=== PATIENT | female | born 1990 | race Two or more races ===

== ENCOUNTER 2023-03-06 15:39 | Outpatient (AMB) | payer OTHER, SELFPAY ==
--- NOTE | 2023-03-06 15:41 | MHC.OFFWIV ---
Intake Vital Signs 03/06/23 15:42 Height 4 ft 9 in Weight 174 lb BMI 37.6 BP 112/78 Blood Pressure Location Lt brachial Position Sitting Pulse 78 Pulse Source Pulse Oximeter Temp 98.0 F Temp Source Temporal Artery Scan Pulse Oximetry (%) 98 Intake Visit Reasons: EP, sore throat, congestion (masked) Intake Note: pt is here for c/o sore throat with congestion Patient Tobacco Use Status: Never used Tobacco Allergies No Known Allergies Allergy (Verified 03/06/23 16:00) Medication List - Last Reconciled 03/06/23 by Mu Poe MD albuterol sulfate 90 mcg/actuation inhalation epinephrine IM fluticasone propionate 110 mcg/actuation inhalation Do you need a note to return to daycare/school/sports/work: Yes HPI EP, sore throat, congestion (masked) HPI Details Patient presents for a sick visit. Reporting symptoms of sinus congestion, sore throat and difficulty swallowing. Low-grade fever. No family member is sick. No recent travel. Patient reports symptoms of malaise and fatigue. PFSH Social History Patient Tobacco Use Status: Never used Tobacco Physical Exam Vital Signs: Last Vital Signs Temp 98.0 F 03/06/23 15:42 Pulse 78 03/06/23 15:42 BP 112/78 03/06/23 15:42 Pulse Ox 98 03/06/23 15:42 BMI result Body Mass Index 37.6 Const General: cooperative and healthy appearing Nutritional Appearance: well nourished Orientation/consciousness: patient oriented x3 Limitations: no limitations HEENT Head: Yes normal to inspection Eyes General: appearance normal, both eyes and all related structures Neck Neck: Yes normal visual inspection Chest Chest palpation & inspection: normal palpation of entire chest wall Resp Effort & Inspection: normal respiratory effort Neuro General: patient oriented x3 Assessment & Plan Assessment & Plan (1) Upper respiratory tract infection: Code(s): J06.9 - Acute upper respiratory infection, unspecified Qualifiers: URI type: unspecified viral URI Qualified Code(s): J06.9 - Acute upper respiratory infection, unspecified Plan: Increase fluid intake. Tylenol for aches and pains. If symptoms worsen, follow-up here for a recheck. No antibiotics needed. Coding Level of Care Code Est Pt Level 3 (18118) Diagnoses Viral upper respiratory tract infection J06.9 URI type: unspecified viral URI
[2023-03-06 15:42] VITALS: BP 112/78; PULSE 78; TEMP 36.7; O2SAT 98; BMI 37.6
== END 2023-03-06 16:16 | disposition home or self-care (01) ==
PROVIDERS: Visit Provider Internal Medicine
DX: J02.9 Acute pharyngitis, unspecified (principal); J06.9 Acute upper respiratory infection, unspecified
CPT/HCPCS: 87880; 99213

== ENCOUNTER 2023-04-04 08:25 | Outpatient (AMB) | payer OTHER, SELFPAY ==
--- NOTE | 2023-04-04 08:26 | MHC.OFFVIS ---
Intake Vital Signs 04/04/23 08:27 Height 4 ft 9 in Weight 179 lb BMI 38.7 Intake Visit Reasons: [employer]-Lumbosacral radiating pain left foot Intake Note: Florencia 33 yr old female presents today for a new patient visit for an evaluation for her left foot pain. States her pain started about 6 months. Reports she has bunions and is having pain in her big toe. At times she has a sharp radiating pain to her ankle. She was seen with a cook restaurant who advise she should be evaluated by an orthopedic/resident care technician specialist for her back. Allergies naproxen [From Aleve] Allergy (Intermediate, Verified 04/04/23 08:37) hives Medication List - Last Reconciled 04/04/23 by Cyndi Alex MD albuterol sulfate 90 mcg/actuation inhalation epinephrine IM HPI HPI Comments History of Present Illness Details Referred from [facility] Podiatry Dr. Mccauley to evaluate if left ankle/foot pain is from lumbar radiculopathy. Always dealt with back pain, never thought it was an issue. Started 7 years ago, no inciting injury. Was a cheerleader. Denies any specific injury. After , noticed more pain, 2016. Nowadays, would have back pain few times a month. Sometimes has to roll out of bed and sit up right away, usually worse in the morning. Worse with sitting than standing. Walking does not bother. More left side. Does not radiate to her legs. Denies numbness on legs/feet. No bladder/bowel incontinence. Generally 5/10 when it occurs, lasting up to an hour only. Left foot pain which she thought was her bunion, radiates from toe to ankle, described as sharp. Separate from the back pain. No foot drop. No numnbness of her foot. No specific treatment done so far for the back pain. 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 Patient was appropriately conversant and oriented. Good historian. MSK: No specific abnormalities found on inspection of the spine and all extremities. No pain with palpation over the lumbar area. Lumbar ROM was full. Bilateral hip, knee and ankle ROM WNL. No ligamentous laxity or crepitance. No increased effusion. Straight-leg raising test causes some tingling to the left leg. FABERE test negative. Gillet test is negative. Woody test is negative. Piriformis test is negative. Scour test is negative. Strength is 5/5 in all muscle groups tested. No increased tone noted. Neurological: Neurologic examination of the upper and lower extremities was nonfocal with intact sensation, muscle stretch reflexes and without focal motor deficits . Chirinos?s negative bilaterally. Babinski was down going bilaterally. Clonus was negative. Gait is non-antalgic without loss of balance. No footdrop. Results Reviewed Results Reviewed: I independently reviewed the results of the following: lumbar xray shows good disc spaces; await final reading I reviewed records from the following: PCP Podiatry Assessment & Plan Assessment & Plan (1) Lumbar paraspinal muscle spasm: Code(s): M62.830 - Muscle spasm of back Plan For the question whether lower back pain is causing left ankle/foot pain, I do not believe there is a direct correlation. Her left lower back pain is described as nonradicular. She denies any numbness. Exam today was pretty much unremarkable except for mild SLR and tightness on lumbar paraspinals. We will still treat the lower back pains is not bothering her as much. Recommended physical therapy to work on left lumbar paraspinals with myofascial release. Await official reading of x-ray results. Assessment and plan discussed with patient, and patient was agreeable. All questions were answered thoroughly. Follow-up in 2 months. Cyndi Alex MD, JAMIE Board Certified, [place] [employer] and [employer] (ABPMR) Board Certified, [place] [employer] Electro[employer] (ABEM) Orders: Orders PT Evaluation and Treatment Today M62.830 - Muscle spasm of back XR lumbar spine 2-3V Today J06.9 - Acute upper respiratory infection, unspecified, M79.672 - Pain in left foot Coding Level of Care Code New Pt Level 4 (65386) Diagnoses Lumbar paraspinal muscle spasm M62.830
[2023-04-04 08:27] VITALS: BMI 38.7
== END 2023-04-04 09:03 | disposition home or self-care (01) ==
PROVIDERS: Visit Provider Physical Medicine & Rehabilitation
DX: M62.830 Muscle spasm of back (principal)
CPT/HCPCS: 99204

== ENCOUNTER 2023-04-04 12:37 | Outpatient (REF) | payer OTHER, SELFPAY ==
--- NOTE | ~2023-04-04 | XR_ITS ---
EXAMINATION: XR LUMBOSACRAL SPINE CLINICAL INFORMATION: Left leg pain. COMPARISON: None available. TECHNIQUE: AP and lateral views of the lumbar spine and lateral view of the lumbosacral junction. FINDINGS: Vertebral body heights and alignment are normal. The lower thoracic and lumbar disc spaces are well-maintained. No acute fracture or spondylolisthesis is seen. There is mild to moderate anterior spondylosis at T11-T12. The posterior elements are intact. The paravertebral soft tissues are unremarkable. An intrauterine device is noted. XR/XR lumbar spine 2-3V IMPRESSION: 1. No acute fracture or spondylolisthesis is seen. 2. The lower thoracic and lumbar disc spaces are well-maintained. 3. There is mild to moderate anterior spondylosis at T11-T12.
== END 2023-04-04 12:38 | disposition home or self-care (01) ==
LOC: HO.HOSX 12:37
PROVIDERS: Visit Provider Physical Medicine & Rehabilitation
DX: M62.830 Muscle spasm of back (principal); J06.9 Acute upper respiratory infection, unspecified
CPT/HCPCS: 72100